=== PATIENT | female | born 1955 | race Caucasian/White ===

== ENCOUNTER 2022-10-07 17:51 | Emergency (ER) | payer SELFPAY ==
[~2022-10-07] VITALS: Ht 157.5 cm; Wt 80.9 kg
[~2022-10-07 17:51] MED LIST: AMLO5TAB1; ESOM40EC
[2022-10-07 18:15] VITALS: BP 165/79
--- NOTE | 2022-10-07 18:18 | NUR ---
Goran yancey in [facility] - 10/07/22 at 1820 by MED1 PT AMB TO BED 1.
--- NOTE | 2022-10-07 18:30 | NUR ---
BIB DAUGHTER C/O HEAD & RIGHT FACIAL PAIN, RIGT FAIAL ABRASION WOUND S/P DIZZINESS & FALL X TODAY. DENIES LOC. BLOOD SUGAR 108 AT THIS TIME. PMH: DM, HTN
--- NOTE | 2022-10-07 19:06 | NUR ---
Patient being evaluated by DR LUCIA at [facility] .
[2022-10-07] MEDS ORDERED: IBUPROFEN 600 MG TAB PO ONE (19:10)
--- NOTE | 2022-10-07 19:17 | NUR ---
PT TO CT
[2022-10-07] MEDS ORDERED: NAPR-54 PO (20:23)
--- NOTE | 2022-10-07 20:25 | NUR ---
pt d/c by dr. martinez. all discharge and medication information provided by dr. martinez. rx of naprosyn given.
== END 2022-10-07 20:25 | disposition home or self-care (01) ==
LOC: MED 17:51
DX: S00.93XA Contusion of unspecified part of head, initial encounter (principal); I10 Essential (primary) hypertension; E11.9 Type 2 diabetes mellitus without complications; E03.9 Hypothyroidism, unspecified; Z79.4 Long term (current) use of insulin; Z79.899 Other long term (current) drug therapy; Z90.49 Acquired absence of other specified parts of digestive tract; Z90.710 Acquired absence of both cervix and uterus; W18.30XA Fall on same level, unspecified, initial encounter; Y93.89 Activity, other specified; Y92.89 Other specified places as the place of occurrence of the external cause; Y99.8 Other external cause status
CPT/HCPCS: 70450; 70486; 99284